=== PATIENT | male | born 1950 | race Caucasian/White ===

== ENCOUNTER 2018-05-05 07:51 | Outpatient (CLI) | payer MEDICARE, OTHER ==
[2018-05-05] MEDS ORDERED: Gadobenate Dimeglumine 529 MG/1 ML (20ML VIAL) ONE (09:00)
--- NOTE | 2018-05-05 10:29 | MRI ---
MRI BRAIN WITH AND WITHOUT CONTRAST: DATE: 05-05-18 HISTORY: 67-year-old male with H50.10, extrophia. TECHNIQUE: Multiple sequences obtained in axial, sagittal, and coronal planes; pre and post IV injection of gado linium-based contrast agent: 18 ml MultiHance. This was ordered as a standard brain MRI rather than M RI of the brain and orbits. This study was already performed by the computer engineering technologist before the radio logist was aware of the order. FINDINGS: The ventricles are normal in size and configuration. There is no major intraaxial signal abnormality , restricted diffusion, abnormal intraaxial enhancement, mass, midline shift or any other mass effect , recent intraaxial hemorrhage, or extraaxial fluid collection. There is mild mucosal thickening in the bilateral frontal, ethmoid, and sphenoid sinuses. Two small m ucous retention cysts are present in the left maxillary sinus. IMPRESSION: Normal brain. Álvaro Ferguson POS: [id number]
== END 2018-05-05 07:52 | disposition home or self-care (01) ==
LOC: SCSMRI 07:51
PROVIDERS: ATTEND Family Medicine
DX: H50.10 Unspecified exotropia (principal)
CPT/HCPCS: 70553; A9579